=== PATIENT | male | born 1960 ===

== ENCOUNTER 2017-11-23 06:05 | Day surgery (SDC) | payer OTHER ==
[~2017-11-23] VITALS: Ht 170.2 cm; Wt 81.6 kg
[~2017-11-23 06:05] MED LIST: BAYER CHEWABLE81 MG PO; CENTRUM VITAMIN; LISINOPRIL20 MG PO; LOVASTATIN40 M1 PO; METOPROLOL SUCC25 MG PO; TESTOST CYP200 MG/ML IM
[2017-11-23 08:10] VITALS: BP 105/71
== END 2017-11-23 08:24 | disposition home or self-care (01) | DRG 951 ==
LOC: ENDO 06:05
PROVIDERS: ATTEND Internal Medicine Gastroenterology
PROC: 0DBK8ZX Excision of Ascending Colon, Via Natural or Artificial Opening Endoscopic, Diagnostic (ICD-10-PCS; principal; 2017-11-23)
PROC: 0DBN8ZX Excision of Sigmoid Colon, Via Natural or Artificial Opening Endoscopic, Diagnostic (ICD-10-PCS; 2017-11-23)
PROC: 0DBM8ZX Excision of Descending Colon, Via Natural or Artificial Opening Endoscopic, Diagnostic (ICD-10-PCS; 2017-11-23)
DX: Z12.11 Encounter for screening for malignant neoplasm of colon (principal); D12.2 Benign neoplasm of ascending colon; D12.4 Benign neoplasm of descending colon; D12.5 Benign neoplasm of sigmoid colon; K64.4 Residual hemorrhoidal skin tags; K57.30 Diverticulosis of large intestine without perforation or abscess without bleeding; K64.8 Other hemorrhoids; I10 Essential (primary) hypertension